=== PATIENT | male | born 1990 | race Caucasian/White ===

== ENCOUNTER 2017-08-24 02:09 | Emergency (ER) | payer OTHER ==
[~2017-08-24] VITALS: Ht 185.4 cm; Wt 79.4 kg
--- NOTE | 2017-08-24 02:11 | NUR ---
Pt brought in by EMS in c-spine.
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
[2017-08-24] MEDS ORDERED: ACETAMINOPHEN ES 500 MG TABLET PO ONE (02:30)
[2017-08-24] MEDS ORDERED: ACETAMINOPHEN ES 500 MG TABLET ONE (02:44)
--- NOTE | 2017-08-24 02:53 | NUR ---
PT in P custody. Officer Rosemary at bedside. Pt and [facility] agree on tylenol not to be given at this time due to pending tests by [facility]. Pt will be released into [facility] custody pending ER clearance for further toxicology screening per [facility] protocol. Pt is agreeable to this situation.
--- NOTE | 2017-08-24 03:44 | NUR ---
Patient discharged in P custody, pt. in stable conditon. Written and verbal after care instructions given. Patient verbalizes understanding of instructions. All belongings taken w/ patient. Family notified of pt discharge and placement to [facility] custody. Mother and father at bedside during discharge process. VSS.
[2017-08-24 03:53] VITALS: BP 155/85
== END 2017-08-24 03:54 ==
LOC: ER 02:15
DX: S00.83XA Contusion of other part of head, initial encounter (principal); V89.2XXA Person injured in unspecified motor-vehicle accident, traffic, initial encounter; Y92.410 Unspecified street and highway as the place of occurrence of the external cause; Y93.89 Activity, other specified; Y99.8 Other external cause status
CPT/HCPCS: 70450; 70486; 72125; 99284; A4663; A9150